=== PATIENT | female | born 1980 | race Caucasian/White ===

== ENCOUNTER 2019-08-20 14:00 | Outpatient (CLI) | payer BC ==
--- NOTE | 2019-08-20 15:33 | MMO ---
Bilateral MAMMO Bilat Diag [facility]+OTILIA. CLINICAL HISTORY: Patient is 39 years old and is seen for additional evaluation requested at current screening. The patient has no family history of breast cancer. The patient has no personal history of cancer. The patient has a history of left Excisional Biopsy in Jan, 2018 - benign. VIEWS: The views performed were: bilateral mediolateral oblique spot compression magnification; bilateral mediolateral spot compression magnification; and bilateral mediolateral with tomosynthesis. FILMS COMPARED: The present examination has been compared to prior imaging studies performed at [facility] on 08/05/2019, and at [facility] on 09/07/2016 and 01/10/2018. This study has been interpreted with the assistance of computer-aided detection. MAMMOGRAM FINDINGS: The breasts are heterogeneously dense, which could obscure a lesion on mammography. Finding 1: There are punctate calcifications with grouped or clustered distribution seen in the MLO view only seen in the posterior upper region of the right breast. Additional views were performed. Finding 2: There are calcifications with grouped or clustered distribution seen in the MLO view only seen in the posterior upper region of the left breast. Additional views were performed. IMPRESSION: FINDING 1: PUNCTATE CALCIFICATIONS IN THE RIGHT BREAST ARE PROBABLY BENIGN. FOLLOW-UP IN 6 MONTHS IS RECOMMENDED. FINDING 2: CALCIFICATIONS IN THE LEFT BREAST ARE PROBABLY BENIGN. FOLLOW-UP IN 6 MONTHS IS RECOMMENDED. THE RESULTS OF THIS EXAM WERE SENT TO THE PATIENT. ACR BI-RADS Category 3 - Probably benign finding - short interval follow-up suggested. [facility] will notify the patient of the need for additional imaging services. MAMMOGRAPHY NOTE: 1. A negative mammogram report should not delay a biopsy if a dominant of clinically suspicious mass is present. 2. Approximately 10% to 15% of breast cancers are not detected by mammography. 3. Adenosis and dense breasts may obscure an underlying neoplasm. Reported by: BECCA FINE MD Electonically Signed: [id number]
== END 2019-08-20 14:01 | disposition home or self-care (01) ==
LOC: BICMAMMO 14:00
PROVIDERS: ATTEND Obstetrics & Gynecology
DX: R92.1 Mammographic calcification found on diagnostic imaging of breast (principal)
CPT/HCPCS: 77066; G0279

== ENCOUNTER 2020-08-01 14:34 | Outpatient (CLI) | payer BC ==
--- NOTE | 2020-08-01 15:22 | MMO ---
Right Breast MAMMO Unilat Diag [facility]DI RT+OTILIA. CLINICAL HISTORY: Patient is 40 years old and is seen for follow-up at short-interval from prior study. The patient has no family history of breast cancer. The patient has no personal history of cancer. The patient has a history of left Excisional Biopsy in Jan, 2018 - benign. VIEWS: The views performed were: right craniocaudal with tomosynthesis; right mediolateral oblique with tomosynthesis; right mediolateral spot compression magnification; right mediolateral with tomosynthesis; right exaggerated craniocaudal spot compression magnification; and right exaggerated craniocaudal with tomosynthesis. FILMS COMPARED: The present examination has been compared to prior imaging studies performed at [facility] on 08/05/2019, at [facility] on 01/10/2018, and at [facility] on 08/20/2019 and 02/04/2020. This study has been interpreted with the assistance of computer-aided detection. MAMMOGRAM FINDINGS: The breast is heterogeneously dense, which could obscure a lesion on mammography. There are stable calcifications with grouped or clustered distribution seen in the posterior region of the right breast at 10 o'clock. IMPRESSION: STABLE CALCIFICATIONS IN THE RIGHT BREAST ARE PROBABLY BENIGN. FOLLOW-UP IN 6 MONTHS IS RECOMMENDED. THE RESULTS OF THIS EXAM WERE SENT TO THE PATIENT. ACR BI-RADS Category 3 - Probably benign finding - short interval follow-up suggested. [facility] will notify the patient of the need for additional imaging services. MAMMOGRAPHY NOTE: 1. A negative mammogram report should not delay a biopsy if a dominant of clinically suspicious mass is present. 2. Approximately 10% to 15% of breast cancers are not detected by mammography. 3. Adenosis and dense breasts may obscure an underlying neoplasm. Reported by: NATALIE LAMBERT MD Electonically Signed: [id number]
== END 2020-08-01 14:35 | disposition home or self-care (01) ==
LOC: BICMAMMO 14:34
PROVIDERS: ATTEND Obstetrics & Gynecology
DX: R92.1 Mammographic calcification found on diagnostic imaging of breast (principal)
CPT/HCPCS: G0279

== ENCOUNTER 2022-02-19 13:20 | Outpatient (CLI) | payer BC | END 2022-02-19 13:21 | disposition home or self-care (01) | LOC: BICMAMMO 13:20 | PROVIDERS: ATTEND Obstetrics & Gynecology | DX: R92.8 Other abnormal and inconclusive findings on diagnostic imaging of breast (principal) | CPT/HCPCS: 77066; G0279 ==

== ENCOUNTER 2023-04-16 11:15 | Outpatient (CLI) | payer BC ==
[2023-04-16 12:59] LABS: Hematocrit 38.8 % (34.9-44.5); Mean Corpuscular HGB CONC 33.5 g/dL (32.0-36.0); Mean Corpuscular Hemoglobin 29.9 pg (27.0-33.0); Mean Corpuscular Volume 89.2 fl (81.6-98.3); Mean Platelet Volume 9.6 fl (7.4-10.4); Platelet Count 292 10x3/uL (150-450); Red Blood Cell (RBC) Count 4.35 10x6/uL (3.90-5.03); White Blood Cell (WBC) Count 6.4 10x3/uL (3.5-10.5)
[2023-04-16 13:24] LABS: Anion Gap 15 mmol/L (10-20); BUN (Urea Nitrogen) 9 mg/dL (7.0-18.7); Calc. Creatinine Clearance 0 mL/min (70-130); Calcium 9.4 mg/dL (7.8-10.44); Carbon Dioxide 24 mmol/L (22-29); Chloride 104 mmol/L (98-107); Estimated GFR 102; Glucose 103 mg/dL (70-105); Potassium 4.5 mmol/L (3.5-5.1); Sodium 138 mmol/L (136-145)
[2023-04-16 13:25] LABS: PTT 26.8 sec (22.0-33.0); Prothrombin Time 10.3 sec (9.5-12.1)
== END 2023-04-16 11:16 | disposition home or self-care (01) ==
LOC: LABBT 11:15
PROVIDERS: ATTEND Surgery
DX: Z01.812 Encounter for preprocedural laboratory examination (principal); M51.16 Intervertebral disc disorders with radiculopathy, lumbar region; M48.062 Spinal stenosis, lumbar region with neurogenic claudication
CPT/HCPCS: 80048; 85027; 85610; 85730

== ENCOUNTER 2023-04-19 05:47 | Observation (INO) | payer BC ==
[2023-04-16 12:18] VITALS: BMI 23.7
[2023-04-19] MEDS ORDERED: Lidocaine 1% MPF 2 ML VIAL ONE (06:25)
[2023-04-19] MEDS ORDERED: Fentanyl 250 MCG/5 ML VIAL ONE (06:43)
[2023-04-19] MEDS ORDERED: SUGAMMADEX SODIUM 200 MG/2 ML VIAL ONE (06:44)
[2023-04-19] MEDS ORDERED: Dexmedetomidine 200 MCG/2 ML VIAL ONE (06:44)
[2023-04-19] MEDS ORDERED: Scopolamine 1.5 mg/72 hour Patch ONE (06:59)
[2023-04-19] MEDS ORDERED: Ondansetron PF 4 MG/2 ML Vial ONE (07:03)
[2023-04-19] MEDS ORDERED: Lidocaine 1% PF 5 ML VIAL ONE (07:03)
[2023-04-19] MEDS ORDERED: Rocuronium Bromide 10 MG/ML (10ML VIAL) ONE (07:03)
[2023-04-19] MEDS ORDERED: PROPOFOL 200 MG/20 ML VIAL ONE (07:03)
[2023-04-19] MEDS ORDERED: Dexamethasone 20 MG/5 ML VIAL ONE (07:03)
[2023-04-19] MEDS ORDERED: PHENYLEPHRINE-NS 100 MCG/ML 10 ML SYRINGE ONE (07:03)
[2023-04-19] MEDS ORDERED: Glycopyrrolate 0.2 MG/ML 5 ML SYRINGE ONE (07:03)
[2023-04-19] MEDS ORDERED: NEOSTIGMINE 3 MG/3 ML SYR 3 MG/3 ML SYRINGE ONE (07:03)
[2023-04-19] MEDS ORDERED: Metoclopramide HCl 10 MG/2 ML VIAL ONE (07:03)
[2023-04-19] MEDS ORDERED: ePHEDrine Sulfate 50 MG/10 ML VIAL ONE (07:03)
[2023-04-19] MEDS ORDERED: Midazolam HCl 2 mg/2 ml Vial ONE (07:22)
[2023-04-19] MEDS ORDERED: Famotidine/PF 20 mg/2ml Vial ONE (07:31)
[2023-04-19] MEDS ORDERED: CEFAZOLIN 2 GM VIAL ONE (07:58)
[2023-04-19] MEDS ORDERED: Sodium Chloride 0.9% 100 ML ONE (07:58)
[2023-04-19] MEDS ORDERED: Thrombin 5000 UNITS/5 ML VIAL ONE ×2 (09:51→09:52)
[2023-04-19] MEDS ORDERED: HYDROcodone/Acetaminophen 7.5/325 mg Tablet PO PRN (11:19)
[2023-04-19] MEDS ORDERED: Promethazine HCl 25 MG/ML VIAL IVPB PRN (11:19)
[2023-04-19] MEDS ORDERED: traMADol HCl 50 MG TAB PO PRN (11:19)
[2023-04-19] MEDS ORDERED: Ondansetron PF 4 MG/2 ML Vial IVP PRN (11:19)
[2023-04-19] MEDS ORDERED: diphenhydrAMINE 25 MG CAP PO PRN (11:19)
[2023-04-19] MEDS ORDERED: Acetaminophen 325 MG TAB PO PRN (11:19)
[2023-04-19] MEDS ORDERED: tiZANidine HCl 4 MG TAB PO PRN (11:22)
[2023-04-19] MEDS ORDERED: Promethazine HCl 25 MG/ML VIAL IM PRN (11:32)
[2023-04-19] MEDS ORDERED: Ondansetron HCl/PF 4 MG/2 ML Vial IVP PRN (11:32)
[2023-04-19] MEDS ORDERED: HYDROmorphone 2 MG/ML VIAL SLOW IVP PRN (11:32)
[2023-04-19] MEDS ORDERED: fentaNYL 50 mcg/mL 1 mL Vial ONE ×3 (11:44→12:18)
[2023-04-19] MEDS ORDERED: Dextrose 5% in Water 1,000 ML IV PRN (11:45)
[2023-04-19] MEDS ORDERED: Dextrose 50% Abboject 50 ML SYRINGE IVP PRN (11:45)
[2023-04-19] MEDS ORDERED: Glucagon 1 MG/ML KIT IM PRN (11:45)
[2023-04-19] MEDS ORDERED: HumaLOG 300 UNITS/3 ML VIAL SC SCH (12:00)
[2023-04-19] MEDS: Sodium Chloride 0.9% 1,000 ML IV SCH ×2 (13:38→20:06)
[2023-04-19] MEDS: CEFAZOLIN 2 GM in Sodium Chloride 0.9% 100 ML IVPB SCH ×2 (15:49→23:42)
[2023-04-19] MEDS: Acetaminophen/Codeine 30-300mg Tablet PO PRN ×2 (17:05→23:12)
[2023-04-19] MEDS ORDERED: Simvastatin 10 MG TAB PO SCH (21:00)
[2023-04-19] MEDS ORDERED: Cephalexin 250 MG CAP PO SCH (21:00)
[2023-04-19] MEDS ORDERED: Losartan 25 MG TAB PO SCH (21:00)
[2023-04-19] MEDS ORDERED: Levothyroxine Sodium 100 MCG TAB PO SCH (21:00)
[2023-04-19] MEDS: fentaNYL 50 mcg/mL 1 mL Vial SLOW IVP PRN (21:15)
[2023-04-20] MEDS: fentaNYL 50 mcg/mL 1 mL Vial SLOW IVP PRN ×2 (03:32→09:28)
[2023-04-20] MEDS: Acetaminophen/Codeine 30-300mg Tablet PO PRN (06:09)
[2023-04-20 08:50] VITALS: BP 109/59; TEMP 98
[2023-04-20] MEDS: Sodium Chloride 0.9% 1,000 ML IV SCH (09:28)
[2023-04-20] MEDS ORDERED: Insulin Glargine 30 UNITS/0.3 ML VIAL SC SCH (21:00)
== END 2023-04-20 12:08 | disposition home or self-care (01) ==
LOC: SDC 05:47 → SURG B 13:24 → SJJU 16:06
PROVIDERS: ADMIT Surgery; ATTEND Surgery
PROC: 00NY0ZZ Release Lumbar Spinal Cord, Open Approach (ICD-10-PCS; principal; 2023-04-20)
DX: M51.16 Intervertebral disc disorders with radiculopathy, lumbar region (principal); M48.062 Spinal stenosis, lumbar region with neurogenic claudication
CPT/HCPCS: 36416; J1100; J2250; J2405; J2550; J2704; J2765; J3010; J3490; J7050; S0028